=== PATIENT | female | born 1980 | race Caucasian/White ===

== ENCOUNTER 2019-09-08 21:05 | Emergency (ER) | payer MEDICAID ==
[~2019-09-08] VITALS: Ht 167.6 cm; Wt 83.9 kg
[2019-09-08 21:11] VITALS: BP 115/90
--- NOTE | 2019-09-08 21:16 | NUR ---
PT INSTRUCTED TO WAIT IN LOBBY
[2019-09-08 21:36] LABS: APPEARANCE,URINE CLEAR (CLEAR); BILIRUBIN,URINE NEGATIVE (NEGATIVE); BLOOD, URINE NEGATIVE (NEGATIVE); COLOR,URINE YELLOW (YELLOW); LEUKOCYTE ESTERASE ,URINE NEGATIVE (NEGATIVE); NITRITE, URINE NEGATIVE (NEGATIVE); UGLUCOSE NEGATIVE (NEGATIVE)
[2019-09-08] MEDS ORDERED: AZITHROMYCIN 250 MG TAB PO ONE (21:55)
[2019-09-08] MEDS ORDERED: cefTRIAXone 250 MG in LIDOCAINE MPF 1% 0.9 ML IM ONE (21:55)
[2019-09-08] MEDS ORDERED: cefTRIAXone 250 MG VIAL ONE (22:00)
[2019-09-08] MEDS ORDERED: LIDOCAINE MPF 1% 5 ML ONE (22:05)
--- NOTE | 2019-09-08 22:10 | NUR ---
39F C/O VAGINAL PAIN STARTING YESTERDAY, PELVIC/LOWER ABD PAIN + DIARRHEA SINCE LAST WEEK. PT ALSO STATES SHE HAD GREEN VAGINAL DISCHARGE LAST WEEK, AND INTERCOURSE IS PAINFUL. PT REPORTS HAVING UNPROTECTED SEX. NO PMH NKA
[2019-09-08 22:39] VITALS: BP 115/90
--- NOTE | 2019-09-08 22:39 | NUR ---
Patient discharged with v/s stable. Written and verbal after care instructions given and explained. Patient alert, oriented and verbalized understanding of instructions. Ambulatory with steady gait. All questions addressed prior to discharge. ID band removed. Patient advised to follow up with PMD. Rx of FLAGYL given. Patient educated on indication of medication including possible reaction and side effects. Opportunity to ask questions provided and answered.
[2019-09-11 06:08] LABS: CHLAMYDIA TRACHOMATIS AMP DNA Negative (Negative)
== END 2019-09-08 22:40 | disposition home or self-care (01) ==
LOC: MED 21:05
DX: N76.0 Acute vaginitis (principal)
CPT/HCPCS: 36415; 81003; 96372; 99283; J0696; J2001